=== PATIENT | female | born 1985 | race Asian ===

== ENCOUNTER 2022-12-05 11:52 | Emergency (ER) | payer OTHER ==
[~2022-12-05] VITALS: Ht 152.4 cm; Wt 108.9 kg
[2022-12-05 12:23] LABS: PLATELET COUNT 358 K/uL (152-353)
[2022-12-05 12:33] LABS: POTASSIUM 3.6 mmol/L (3.6-5.2)
[2022-12-05 12:43] LABS: PARTIAL THROMBOPLASTIN TIME 23.4 SECONDS (24.5-33.6)
[2022-12-05 15:00] VITALS: BP 137/92; TEMP 97.7
== END 2022-12-05 15:00 | disposition home or self-care (01) ==
LOC: ED 11:52
PROVIDERS: Emergency Medicine
DX: E86.0 Dehydration (principal); I95.1 Orthostatic hypotension
CPT/HCPCS: 80053; 80307; 81002; 84443; 85027; 85379; 85610; 85730; 93005; 96360; 99284